=== PATIENT | female | born 1990 | race Caucasian/White ===

== ENCOUNTER 2018-03-27 12:58 | Emergency (ER) | payer BC ==
[2018-03-27] MEDS ORDERED: Ketorolac Tromethamine 60 MG/2 ML VIAL ONE (13:44)
--- NOTE | 2018-03-27 13:54 | RAD ---
LUMBAR SPINE RADIOGRAPHS THREE VIEWS: 03/27/2018 PROVIDED CLINICAL HISTORY: Back pain. COMPARISON: 11/18/2008 FINDINGS: Five oul-yct-meviexc lumbar-type vertebral bodies are present. Laminectomy changes, bilateral pedicl e screws, and vertical connecting zaira placement at L5-S1, with an intervening intervertebral disk dev ice again seen. Lumbar alignment remains normal. Vertebral body heights are preserved. Mild disk s pace narrowing at L4-L5. Pedicles appear intact. No evidence for fracture. IMPRESSION: Postoperative and degenerative change without evidence for an acute osseous abnormality. POS: YANNICK
[2018-03-27 14:03] LABS: Pregnancy Test - Urine (BHCG) Negative (Negative); Pregu Control Background? CLEAR/WHITE (CLR/WHITE); Pregu Control Bar Appear? YES (CONTROL BAR)
== END 2018-03-27 15:00 | disposition home or self-care (01) ==
LOC: ERS 12:58
DX: M54.5 Low back pain (principal); F17.210 Nicotine dependence, cigarettes, uncomplicated; V43.62XA Car passenger injured in collision with other type car in traffic accident, initial encounter
CPT/HCPCS: 72100; 81025; 96372; J1885